=== PATIENT | female | born 1995 | race Caucasian/White ===

== ENCOUNTER 2024-03-31 07:58 | Emergency (ER) | payer SELFPAY ==
[2024-03-31] MEDS ORDERED: IPRATROPIUM BROM 0.5MG/2.5ML ONE (08:24)
[2024-03-31] MEDS ORDERED: ALBUTEROL 2.5 MG/3 ML NEB SOL ONE ×2 (08:24→08:26)
[2024-03-31 08:44] LABS: Specific Gravity 1.023 (1.005-1.030); Sqamous Epithelial <5 /HPF (None Seen); Urine Bacteria <20 /HPF (<20); Urine Bilirubin NEGATIVE (Negative); Urine Blood Negative (Negative); Urine Clarity Turbid (Clear); Urine Color Light-Yellow (Yellow); Urine Culture Reflex Order NOT NEEDED; Urine Glucose NEGATIVE (Negative); Urine Ketones NEGATIVE (Negative); Urine Microscopic Reflex YN ORDER UMIC; Urine Nitrite NEGATIVE (Negative); Urine Protein NEGATIVE (Negative); Urine RBC <5 /HPF (None Seen); Urine Urobilinogen Normal (Normal); Urine WBC <5 /HPF (<5)
[2024-03-31 08:45] LABS: Specific Gravity 1.023 (1.005-1.030)
[2024-03-31 08:54] LABS: SARS-CoV-2 Antigen CONTROL BLUE LINE VIS/BG OK; SARS-CoV-2 Antigen Rapid Res Negative (Negative)
--- NOTE | 2024-03-31 09:08 | RAD REPORT ---
EXAM DESCRIPTION: Oni Davalos (2 Views)03/31/2024 8:36 am CLINICAL HISTORY: Cough COMPARISON: None FINDINGS: The lungs appear clear of acute infiltrate. The heart is normal size IMPRESSION: No acute abnormalities displayed
--- NOTE | 2024-03-31 09:25 | ER ---
Nurse's Notes [facility] Name: Kaye Lai Age: 28 yrs Sex: Female : 1995 Arrival Date: 03/31/2024 Time: 07:58 Bed 14 Private MD: Diagnosis: Acute upper respiratory infection, unspecified;Cough;Acute pharyngitis, unspecified Presentation: 03/31 08:35 Chief complaint: Patient states: "sore throat and painful cough x3 days". Coronavirus mb9 screen: Vaccine status: Patient reports being unvaccinated. Ebola Screen: No symptoms or risks identified at this time. Initial Sepsis Screen: Does the patient meet any 2 criteria? No. Patient's initial sepsis screen is negative. Does the patient have a suspected source of infection? No. Patient's initial sepsis screen is negative. 08:35 Method Of Arrival: Ambulatory mb9 08:35 Risk Assessment: Do you want to hurt yourself or someone else? Patient reports no mb9 desire to harm self or others. Onset of symptoms was March 28, 2024. 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 - Infectious Disease History:: Denies. - Social history:: Smoking status: Patient denies any tobacco usage or history of. Screenin:39 [facility] ED Fall Risk Assessment (Adult) History of falling in the last 3 months, mb9 including since admission No falls in past 3 months (0 pts) Confusion or Disorientation No (0 pts) Intoxicated or Sedated No (0 pts) Impaired Gait No (0 pts) Mobility Assist Device Used No (0 pt) Altered Elimination No (0 pt) Score/Fall Risk Level 0 - 2 = Low Risk Oriented to surroundings, Maintained a safe environment, Educated pt \\T\\ family on fall prevention, incl call for assistance when getting out of bed. Abuse screen: Denies threats or abuse. Nutritional screening: No deficits noted. Tuberculosis screening: No symptoms or risk factors identified. Assessment: 08:29 General: Appears in no apparent distress. Behavior is calm, cooperative. Pain: mb9 Complains of pain in throat Pain does not radiate. Pain currently is 5 out of 10 on a pain scale. Quality of pain is described as throbbing, Pain began gradually, Is intermittent. Neuro: Wiggins Agitation-Sedation Scale (RASS): 0 - Alert and Calm Level of Consciousness is awake, alert, obeys commands, Oriented to person, place, time, situation, Appropriate for age. Cardiovascular: Heart tones S1 S2 present Patient's skin is warm and dry. Respiratory: Reports cough that is Airway is patent Respiratory effort is even, unlabored, Respiratory pattern is regular, symmetrical, Breath sounds are clear bilaterally. GI: No signs and/or symptoms were reported involving the gastrointestinal system. : No signs and/or symptoms were reported regarding the genitourinary system. EENT: Throat is reddened. Derm: Skin is pink, warm \\T\\ dry. Musculoskeletal: Range of motion: intact in all extremities. 09:25 Reassessment: Patient and/or family updated on plan of care and expected duration. Pain mb9 level reassessed. Patient is alert, oriented x 3, equal unlabored respirations, skin warm/dry/pink. Patient states feeling better. Patient states symptoms have improved. Vital Signs: 08:35 BP 125 / 89; Pulse 82; Resp 16; Temp 98.2(O); Pulse Ox 100% on R/A; Weight 58.97 kg; mb9 Height 5 ft. 0 in. ; Pain 5/10; 09:34 BP 125 / 78; Pulse 70; Resp 18; Pulse Ox 100% on R/A; mb9 08:35 Body Mass Index 25.39 (58.97 kg, 152.4 cm) mb9 08:35 Pain Scale: Adult mb9 ED Course: 08:02 Patient arrived in ED. sj2 08:03 Fletcher Salvador MD is Attending Physician. torin 08:12 Heather Brownlee RN is Primary Nurse. mb9 08:29 Arm band placed on. mb9 08:38 Triage completed. mb9 08:38 Chest Pa And Lat (2 Views) XRAY In Process Unspecified. EDMS 08:40 Patient has correct armband on for positive identification. Bed in low position. Call mb9 light in reach. Side rails up X 1. Provided Education on: press call light if need anything. Client placed on continuous cardiac and pulse oximetry monitoring. NIBP monitoring applied. Door closed. Noise minimized. Lights dimmed. Warm blanket given. 08:42 No provider procedures requiring assistance completed. Patient did not have IV access mb9 during this emergency room visit. Administered Medications: 08:25 Not Given (Patient Refused): ns 0.9% 1000 ml IV at 1 bolus Per protocol; 1000 mL bolus mb9 08:42 Drug: DuoNeb Nebulize (3:1) (2.5 mg - 0.5 mg) 3 ml Nebulizer once Route: Nebulizer; mb9 09:25 Follow up: Response: No adverse reaction mb9 09:24 Drug: predniSONE PO 60 mg PO once Route: PO; mb9 09:34 Follow up: Response: No adverse reaction mb9 09:28 Drug: Amoxicillin-Clavulanate PO 875 mg PO once Route: PO; mb9 09:35 Follow up: Response: No adverse reaction mb9 Medication: 08:42 VIS not applicable for this client. mb9 Outcome: 09:24 Discharge ordered by MD. harkins 09:35 Discharged to home ambulatory, mb9 09:35 Condition: stable 09:35 Discharge instructions given to patient, Instructed on discharge instructions, follow up and referral plans. Demonstrated understanding of instructions, follow-up care, medications, Prescriptions given X 4, 09:35 Patient left the ED. mb9 Signatures: Dispatcher [employer] Fletcher Mcdowell MD MD cha Wilkerson, Mary Beth, RN RN mb9 Jaleel Harmon sj2
--- NOTE | 2024-03-31 09:25 | EDPHYS ---
Physician Documentation [facility] Name: Kaye Lai Age: 28 yrs Sex: Female : 1995 Arrival Date: 03/31/2024 Time: 07:58 Bed 14 Private MD: GLENNY Physician Fletcher Salvador HPI: 03/31 09:17 This 28 yrs old Female presents to ER via Ambulatory with complaints of torin Painful Cough, Sore Throat. 09:17 The patient or guardian reports cough, difficulty breathing, flu symptoms, arthralgias, torin low-grade fever, myalgias. Onset: The symptoms/episode began/occurred 2 day(s) ago. Severity of symptoms: At their worst the symptoms were moderate, in the emergency department the symptoms have improved. Modifying factors: The symptoms are alleviated by nothing, the symptoms are aggravated by exertion, talking. Associated signs and symptoms: The patient has no apparent associated signs or symptoms. The patient has experienced similar episodes in the past, several times. 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 - Infectious Disease History:: Denies. - Social history:: Smoking status: Patient denies any tobacco usage or history of. ROS: 09:19 Constitutional: Negative for fever, chills, and weight loss, Eyes: Negative for injury, torin pain, redness, and discharge, Neck: Negative for injury, pain, and swelling, Cardiovascular: Negative for chest pain, palpitations, and edema, Abdomen/GI: Negative for abdominal pain, nausea, vomiting, diarrhea, and constipation, Back: Negative for injury and pain, : Negative for injury, bleeding, discharge, and swelling, MS/Extremity: Negative for injury and deformity, Skin: Negative for injury, rash, and discoloration, Neuro: Negative for headache, weakness, numbness, tingling, and seizure, Psych: Negative for depression, anxiety, suicide ideation, homicidal ideation, and hallucinations, Allergy/Immunology: Negative for hives, rash, and allergies, Endocrine: Negative for neck swelling, polydipsia, polyuria, polyphagia, and marked weight changes, Hematologic/Lymphatic: Negative for swollen nodes, abnormal bleeding, and unusual bruising, 09:19 ENT: Positive for rhinorrhea, sore throat, :19 Respiratory: Positive for cough, "sounds productive", Exam: :19 Constitutional: This is a well developed, well nourished patient who is awake, alert, torin and in no acute distress. Head/Face: Normocephalic, atraumatic. Eyes: Pupils equal round and reactive to light, extra-ocular motions intact. Lids and lashes normal. Conjunctiva and sclera are non-icteric and not injected. Cornea within normal limits. Periorbital areas with no swelling, redness, or edema. Neck: Trachea midline, no thyromegaly or masses palpated, and no cervical lymphadenopathy. Supple, full range of motion without nuchal rigidity, or vertebral point tenderness. No Meningismus. Chest/axilla: Normal chest wall appearance and motion. Nontender with no deformity. No lesions are appreciated. Cardiovascular: Regular rate and rhythm with a normal S1 and S2. No gallops, murmurs, or rubs. Normal PMI, no JVD. No pulse deficits. Abdomen/GI: Soft, non-tender, with normal bowel sounds. No distension or tympany. No guarding or rebound. No evidence of tenderness throughout. Back: No spinal tenderness. No costovertebral tenderness. Full range of motion. Skin: Warm, dry with normal turgor. Normal color with no rashes, no lesions, and no evidence of cellulitis. MS/ Extremity: Pulses equal, no cyanosis. Neurovascular intact. Full, normal range of motion. Neuro: Awake and alert, GCS 15, oriented to person, place, time, and situation. Cranial nerves II-XII grossly intact. Motor strength 5/5 in all extremities. Sensory grossly intact. Cerebellar exam normal. Normal gait. Psych: Awake, alert, with orientation to person, place and time. Behavior, mood, and affect are within normal limits. :19 Respiratory: the patient does not display signs of respiratory distress, Respirations: normal, no acute changes, Breath sounds: decreased breath sounds, rhonchi, that are mild, stridor, is not appreciated, + upper airway congestion. wheezing: expiratory Respiratory rate: 16 Vital Signs: 08:35 BP 125 / 89; Pulse 82; Resp 16; Temp 98.2(O); Pulse Ox 100% on R/A; Weight 58.97 kg; mb9 Height 5 ft. 0 in. ; Pain 5/10; 09:34 BP 125 / 78; Pulse 70; Resp 18; Pulse Ox 100% on R/A; mb9 08:35 Body Mass Index 25.39 (58.97 kg, 152.4 cm) mb9 08:35 Pain Scale: Adult mb9 MDM: 08:03 Patient medically screened. [facility] 09:22 Differential Diagnosis: Obstructed Airway Bronchitis Influenza Upper Respiratory torin Infection Sinusitis Pharyngitis Asthma Exacerbation Viral Syndrome Pneumonia. Data reviewed: vital signs, nurses notes, lab test result(s), Flu: negative radiologic studies. Consideration of Admission/Observation Escalation of care including admission/observation considered. I considered the following discharge prescriptions or medication management in the emergency department Medications were administered in the Emergency Department. See MAR. Independent interpretation of the following test(s) in the Emergency Department X-Ray: My interpretation is CXR NEG. Historians other than the Patient: PT WELL INFORMED. Care significantly affected by the following chronic conditions: BRONCHITIS. Counseling: I had a detailed discussion with the patient and/or guardian regarding the historical points, exam findings, and any diagnostic results supporting the discharge/admit diagnosis, lab results, radiology results. 03/31 08:10 Order name: SARS RAPID; Complete Time: 09:11 [facility] 03/31 08:10 Order name: Flu [facility] 03/31 08:10 Order name: Strep [facility] 03/31 08:10 Order name: Urinalysis w/ reflexes; Complete Time: 09:11 [facility] 03/31 08:10 Order name: PREGU; Complete Time: 09:11 [facility] 03/31 08:56 Order name: Throat Culture EDSD 03/31 08:10 Order name: Chest Pa And Lat (2 Views) XRAY; Complete Time: 09:11 [facility] Administered Medications: 08:25 Not Given (Patient Refused): ns 0.9% 1000 ml IV at 1 bolus Per protocol; 1000 mL bolus mb9 08:42 Drug: DuoNeb Nebulize (3:1) (2.5 mg - 0.5 mg) 3 ml Nebulizer once Route: Nebulizer; mb9 09:25 Follow up: Response: No adverse reaction mb9 09:24 Drug: predniSONE PO 60 mg PO once Route: PO; mb9 09:34 Follow up: Response: No adverse reaction mb9 09:28 Drug: Amoxicillin-Clavulanate PO 875 mg PO once Route: PO; mb9 09:35 Follow up: Response: No adverse reaction mb9 Disposition Summary: 03/31/24 09:24 Discharge Ordered Notes: Location: Home [facility] Problem: new torin Symptoms: have improved torin Condition: Stable torin Diagnosis - Acute upper respiratory infection, unspecified torin - Cough torin - Acute pharyngitis, unspecified torin Followup: torin - With: Private Physician - When: 2 - 3 days - Reason: Recheck today's complaints, Continuance of care, Re-evaluation by your physician Discharge Instructions: - Pharyngitis torin - Sore Throat torin - Upper Respiratory Infection, Adult torin - Viral Respiratory Infection torin - Cool Mist Vaporizer torin - Pharyngitis, [id number] torin - Cough, Adult, [id number] torin - Viral Respiratory Infection, [id number] torin - Cough, Adult torin - Discharge Summary Sheet mb9 Forms: - Medication Reconciliation Form [facility] - Antibiotic Education torin - Prescription Opioid Use [facility] - Patient Portal Instructions [facility] - Leadership Thank You Letter [facility] - Work release form mb9 Prescriptions: - albuterol sulfate 90 mcg/actuation Inhalation HFA Aerosol Inhaler - inhale 2 puff INHALATION route every 6 to 8 hours as needed for shortness of torin breath or wheezing; 1 unit; Refills: 0, Product Selection Permitted - Augmentin 875-125 mg Oral Tablet - take 1 tablet ORAL route every 12 hours for 10 days; 20 tablet; Refills: 0, [facility] Product Selection Permitted - Tessalon Perles 100 mg Oral capsule - take 2 capsule ORAL route every 8 hours As needed; 30 capsule; Refills: 0, [facility] Product Selection Permitted - Medrol (Ezio) 4 mg Oral Tablets, Dose Pack - take 1 tablet ORAL route as directed - follow package instructions; 1 packet; [facility] Refills: 0, Product Selection Permitted Signatures: Dispatcher [employer] Fletcher Mcdowell MD MD cha Wilkerson, Heather Hernandez RN RN mb9
[2024-03-31] MEDS ORDERED: AMOX/K CLAV 875 MG TAB ONE (09:28)
[2024-03-31] MEDS ORDERED: predniSONE 20 MG TAB ONE (09:28)
[2024-03-31 09:43] VITALS: TEMP 98.2; O2SAT 100
[2024-03-31 09:51] VITALS: BP 125/78
== END 2024-03-31 09:35 | disposition home or self-care (01) ==
LOC: ER 07:58
DX: J06.9 Acute upper respiratory infection, unspecified (principal); J02.9 Acute pharyngitis, unspecified; Z11.52 Encounter for screening for COVID-19
CPT/HCPCS: 36415; 71046; 81001; 81025; 87070; 87081; 87804; 87811; 99284; J7512; J7613; J7644